=== PATIENT | female | born 1970 | race Caucasian/White ===

== ENCOUNTER 2017-03-05 23:41 | Emergency (ER) | payer MEDICAID ==
[~2017-03-05] VITALS: Ht 165.1 cm; Wt 58.1 kg
[~2017-03-05 23:41] MED LIST: AMLO10TA PO; DOXY100C PO; FLUO20CA9 PO; HYDR-3713 PO; IBUP-1114 PO; NICO14DI20 TD; OLAN2.5T PO; PROZ20CA11 PO; ROZE8TAB9 PO; SUBO8MIS SL; ZYPR2.5T2 PO
[2017-03-06] MEDS ORDERED: methodone PO (00:05)
[2017-03-06 00:58] VITALS: BP 160/85
[2017-03-06] MEDS ORDERED: IBUPROFEN 800 MG TAB PO ONE (01:00)
--- NOTE | 2017-03-06 07:34 | REP ---
Right hand four views: Comparison is 02/21/2016. There is no fracture or dislocation. Mineralization and joint spaces are normal. There are no calcifications or foreign bodies. Impression: Negative right hand. There is no interval change. Signed by Preston Ramirez MD 03/06/2017 07:26 A
== END 2017-03-06 01:23 | disposition home or self-care (01) ==
LOC: M ED 03-06 01:13
DX: S60.221A Contusion of right hand, initial encounter (principal); W22.8XXA Striking against or struck by other objects, initial encounter; Y92.410 Unspecified street and highway as the place of occurrence of the external cause; Y93.89 Activity, other specified; Y99.8 Other external cause status; I10 Essential (primary) hypertension; F32.9 Major depressive disorder, single episode, unspecified; M54.5 Low back pain; F17.210 Nicotine dependence, cigarettes, uncomplicated

== ENCOUNTER 2020-04-06 17:21 | Emergency (ER) | payer MEDICAID, OTHER ==
[~2020-04-06] VITALS: Ht 165.1 cm; Wt 61.2 kg
[2020-04-06 17:21] VITALS: BP 130/98
[~2020-04-06 17:21] MED LIST changes: +FLUO20CA22 PO; -FLUO20CA9 PO; -OLAN2.5T PO; +OLAN2.5T25 PO; +ROZE8TAB16 PO; -ROZE8TAB9 PO; +methodone PO
[2020-04-06] MEDS ORDERED: ACETAMINOPHEN 325 MG TAB PO ONE (18:00)
[2020-04-06] MEDS ORDERED: LIDOCAINE 4% CREAM 5GM (LMX4) TOP ONE (18:00)
[2020-04-06] MEDS ORDERED: ASPE16CR TOP (18:36)
[2020-04-06] MEDS ORDERED: MIRA3350 PO (18:36)
--- NOTE | 2020-04-06 22:58 | REP ---
REASON: Trauma. FINDINGS: Five views of the ribs show no acute fracture or destructive osseous lesion. The accompanying frontal view of the chest shows no cardiomegaly, infiltrates, effusions, or pneumothoraces. IMPRESSION: Negative ribs series. Electronically Signed by Nabor Graves DO 04/07/2020 08:27 A
== END 2020-04-06 18:43 | disposition home or self-care (01) ==
LOC: M ED 17:21
DX: S29.011A Strain of muscle and tendon of front wall of thorax, initial encounter (principal); X50.0XXA Overexertion from strenuous movement or load, initial encounter; Y92.9 Unspecified place or not applicable; I10 Essential (primary) hypertension; F17.210 Nicotine dependence, cigarettes, uncomplicated; Z79.899 Other long term (current) drug therapy

== ENCOUNTER → 2020-09-21 | Outpatient (CLI) | payer OTHER ==
[~2020-09-21] MED LIST changes: +ASPE16CR TOP; +MIRA3350 PO
== END ==
LOC: M LABSMTC 13:29
PROVIDERS: ATTEND Orthopaedic Surgery
DX: Z11.59 Encounter for screening for other viral diseases (principal)

== ENCOUNTER → 2020-09-22 | Outpatient (CLI) | payer OTHER ==
--- NOTE | 2020-09-23 08:12 | ECGEPIP ---
[facility] Test Date: 2020-09-22 Pat Name: MARCO ALVARADO Department: Room: - Gender: Female [employer]: ELLIS : 1970 Requested By: KELLY Marie Order Number: [id number] Reading MD: Bruce Causey Measurements Intervals [place] Rate: 57 P: 63 UT: 193 QRS: 33 QRSD: 77 T: 52 QT: 415 QTc: 406 Interpretive Statements SINUS BRADYCARDIA Comparison tracing not on file Electronically Signed on 09-23-2020 8:11:49 EST by Bruce Causey
== END ==
LOC: M EKG 12:43
PROVIDERS: ATTEND Orthopaedic Surgery
DX: I10 Essential (primary) hypertension (principal)

== ENCOUNTER 2023-11-08 19:57 | Emergency (ER) | payer OTHER ==
[~2023-11-08] VITALS: Ht 167.6 cm; Wt 56.8 kg
[~2023-11-08 19:57] MED LIST changes: -ASPE16CR TOP; -DOXY100C PO; +DOXY100C3 PO; +LIDO76.52 TOP
[2023-11-08] MEDS ORDERED: METH-1177 PO (20:05)
[2023-11-08 20:59] LABS: RSV AMPLIFICATION NEGATIVE (NEGATIVE)
[2023-11-08 21:01] VITALS: BP 148/80; TEMP 99; O2SAT 98
== END 2023-11-08 23:26 | disposition left against medical advice (07) ==
LOC: M ED 19:57
DX: Z53.21 Procedure and treatment not carried out due to patient leaving prior to being seen by health care provider (principal)